=== PATIENT | male | born 1935 | race African-American/Black ===

== ENCOUNTER 2017-07-18 06:01 | Emergency (ER) | payer MEDICARE ==
[~2017-07-18] VITALS: Ht 177.8 cm; Wt 79.0 kg
[~2017-07-18 06:01] MED LIST: GLUC10TA3 PO; LANTUS2P SQ; LISI-360 PO; ZOCO40TA PO; [UNRECOGNIZED DRUG - CODE]
[2017-07-18 06:07] VITALS: BP 135/66; PULSE 62; RESP 18
--- NOTE | 2017-07-18 06:25 | PD ---
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 And he apparently took 30 units of an unknown type of insulin. It was in a syringe unmarked . Apparently he bottomed out his sugar. Paramedics found him confused and combative. His sugar was 37 at the scene and was given an amp with 25 g of dextrose. His mentation improved he arise very pleasantly confused to the ER normal vitals apparently he doesn't even remember that he is living in [place]. 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 He is unaware of what kind of cancer eyes a prostate he says yes prostate. At the time in the ER he has no complaints no cough no fever no source of infection it could be eating of his glucose. And he says he eats fine there's been no decrease in by mouth intake. I ask him who helps with his insulin regimen he says his lady friend and he asked if she is coming. He seems pleasantly demented. PFSH Past Medical History Heart Rhythm Problems: No Cancer: Yes (PROSTATE) Cardiac Catheterization: No Cardiovascular Problems: No High Cholesterol: Yes Congestive Heart Failure: No Diabetes: Yes Patient Takes Glucophage: No Inguinal Hernia: Yes Pneumonia: Yes Radiation Therapy: Yes Shingles: Yes Tetanus Vaccination: > 5 Years Past Surgical History Appendectomy: Yes Cholecystectomy: Yes Coronary Artery Bypass Graft: No Eye Surgery: Yes (BILAT CATARACTS) Prostatectomy: Yes Family History Family Myocardial Infarction: Yes Social History Alcohol Use: No Tobacco Use: No Substance Use: No Allergies-Medications (Allergen,Severity, Reaction): Coded Allergies: No Known Allergies (Unverified , 02/14/15) Reported Meds & Prescriptions Reported Meds & Active Scripts Active Comfort Assist Insulin Sy 30G X 12/23" 0.3 ml (Insulin Syringe/Needle U-100) 1 Mis Mis Syringe Lantus (Insulin Glargine) 100 Units/Ml Inj 10 Unit SQ HS 30 Days Lisinopril 10 mg (Lisinopril) 10 Mg Tab 1 Tab PO DAILY 30 Days Reported Glipizide 10 Mg Tab 20 Mg PO BID Zocor 40 mg (Simvastatin) 40 Mg Tab 1 Tab PO HS Review of Systems Except as stated in HPI: all other systems reviewed are Neg Neurologic: Positive: Change in Mentation, Slurred Speech Physical Exam Narrative GENERAL: alert but demented reports not realizing he is in [place] no memory of ever leaving [facility] SKIN: Warm and dry. HEAD: Atraumatic. Normocephalic. un combed disheveled hair EYES: Pupils equal and round. No scleral icterus. No injection or drainage. ENT: No nasal bleeding or discharge. Mucous membranes pink and moist. NECK: Trachea midline. No JVD. CARDIOVASCULAR: Regular rate and rhythm. RESPIRATORY: No accessory muscle use. Clear to auscultation. Breath sounds equal bilaterally. GASTROINTESTINAL: Abdomen soft, non-tender, nondistended. Hepatic and splenic margins not palpable. MUSCULOSKELETAL: Extremities without clubbing, cyanosis, or edema. No obvious deformities. NEUROLOGICAL: Motor grossly within normal limits. Five out of 5 muscle strength in the arms and legs. Normal speech. PSYCHIATRIC: Appropriate mood and affect; time disoriented Data Data Last Documented VS Vital Signs Date Time Temp Pulse Resp B/P (MAP) Pulse Ox O2 Delivery O2 Flow Rate FiO2 07/18/17 09:00 98.1 07/18/17 06:11 97 Room Air 07/18/17 06:07 62 18 135/66 (89) Orders Orders Complete Blood Count With Diff (07/18/17 06:16) Blood Glucose (07/18/17 06:16) Comprehensive Metabolic Panel (07/18/17 06:16) Iv Access Insert/Monitor (07/18/17 06:16) Dext 5%-Nacl 0.45% 1000 Ml Inj (D5w-1/2 (07/18/17 06:30) Blood Glucose (07/18/17 08:55) Ed Discharge Order (07/18/17 09:11) Labs Laboratory Tests Test 07/18/17 06:15 White Blood Count 8.9 TH/MM3 Red Blood Count 3.99 MIL/MM3 Hemoglobin 12.1 GM/DL Hematocrit 36.2 % Mean Corpuscular Volume 90.7 FL Mean Corpuscular Hemoglobin 30.4 PG Mean Corpuscular Hemoglobin Concent 33.5 % Red Cell Distribution Width 13.5 % Platelet Count 201 TH/MM3 Mean Platelet Volume 9.8 FL Neutrophils (%) (Auto) 71.2 % Lymphocytes (%) (Auto) 17.5 % Monocytes (%) (Auto) 5.7 % Eosinophils (%) (Auto) 5.1 % Basophils (%) (Auto) 0.5 % Neutrophils # (Auto) 6.3 TH/MM3 Lymphocytes # (Auto) 1.6 TH/MM3 Monocytes # (Auto) 0.5 TH/MM3 Eosinophils # (Auto) 0.5 TH/MM3 Basophils # (Auto) 0.0 TH/MM3 CBC Comment DIFF FINAL Differential Comment Blood Urea Nitrogen 23 MG/DL Creatinine 1.98 MG/DL Random Glucose 162 MG/DL Total Protein 7.4 GM/DL Albumin 3.2 GM/DL Calcium Level 8.8 MG/DL Alkaline Phosphatase 88 U/L Aspartate Amino Transf (AST/SGOT) 13 U/L Alanine Aminotransferase (ALT/SGPT) 13 U/L Total Bilirubin 0.2 MG/DL Sodium Level 141 MEQ/L Potassium Level 4.2 MEQ/L Chloride Level 107 MEQ/L Carbon Dioxide Level 26.1 MEQ/L Anion Gap 8 MEQ/L Estimat Glomerular Filtration Rate 39 ML/MIN MDM Medical Decision Making Medical Screen Exam Complete: Yes Emergency Medical Condition: Yes Differential Diagnosis AMS from delirium vs dementia vs hypoglycemia acute on chronic dementia other Narrative Course I ordered labs CXR and signed out to Dr daily for follow up labs and prognosis Killian Hendrix MD Jul 18, 2017 06:25
[2017-07-18] MEDS ORDERED: DEXT 5%-NACL 0.45% 1000 ML INJ 1,000 ML IV SCH (06:30)
[2017-07-18 06:42] LABS: AUTOMATED NEUTROPHIL # 6.3 TH/MM3 (1.8-7.7); BASOPHIL % 0.5 % (0.0-2.0); EOSINOPHIL # 0.5 TH/MM3 (0-0.4); EOSINOPHIL % 5.1 % (0.0-4.0); HEMATOCRIT 36.2 % (39.0-51.0); HEMO FLAGS DIFF FINAL; LYMPH % 17.5 % (9.0-44.0); LYMPHOCYTE # 1.6 TH/MM3 (1.0-4.8); MEAN CELL VOLUME 90.7 FL (80.0-100.0); MEAN CORPUSCULAR HEMOGLOBIN 30.4 PG (27.0-34.0); MEAN CORPUSCULAR HGB CONC 33.5 % (32.0-36.0); MONO % 5.7 % (0.0-8.0); NEUT % 71.2 % (16.0-70.0); PLATELET COUNT 201 TH/MM3 (150-450); RED BLOOD COUNT 3.99 MIL/MM3 (4.50-5.90); RED CELL DISTRIBUTION WIDTH 13.5 % (11.6-17.2); WHITE BLOOD COUNT 8.9 TH/MM3 (4.0-11.0)
[2017-07-18 06:55] LABS: ALT (GPT) 13 U/L (12-78); ANION GAP 8 MEQ/L (5-15); AST (GOT) 13 U/L (15-37); BICARBONATE 26.1 MEQ/L (21.0-32.0); BLOOD UREA NITROGEN 23 MG/DL (7-18); CHLORIDE 107 MEQ/L (98-107); GLOMERULAR FILTRATION RATE 39 ML/MIN (>89); POTASSIUM 4.2 MEQ/L (3.5-5.1); SODIUM (NA) 141 MEQ/L (136-145)
[2017-07-18 06:57] LABS: ALKALINE PHOSPHATASE 88 U/L (45-117); TOTAL BILIRUBIN ADULT 0.2 MG/DL (0.2-1.0)
--- NOTE | 2017-07-18 08:06 | PD ---
Data Data Last Documented VS Vital Signs Date Time Temp Pulse Resp B/P (MAP) Pulse Ox O2 Delivery O2 Flow Rate FiO2 07/18/17 06:11 97 Room Air 07/18/17 06:07 62 18 135/66 (89) temp is 98.1 Orders Orders Complete Blood Count With Diff (07/18/17 06:16) Blood Glucose (07/18/17 06:16) Comprehensive Metabolic Panel (07/18/17 06:16) Iv Access Insert/Monitor (07/18/17 06:16) Dext 5%-Nacl 0.45% 1000 Ml Inj (D5w-1/2 (07/18/17 06:30) Diet Diabetic (07/18/17 Breakfast) Blood Glucose (07/18/17 08:55) Ed Discharge Order (07/18/17 09:11) Labs Laboratory Tests Test 07/18/17 06:15 White Blood Count 8.9 TH/MM3 Red Blood Count 3.99 MIL/MM3 Hemoglobin 12.1 GM/DL Hematocrit 36.2 % Mean Corpuscular Volume 90.7 FL Mean Corpuscular Hemoglobin 30.4 PG Mean Corpuscular Hemoglobin Concent 33.5 % Red Cell Distribution Width 13.5 % Platelet Count 201 TH/MM3 Mean Platelet Volume 9.8 FL Neutrophils (%) (Auto) 71.2 % Lymphocytes (%) (Auto) 17.5 % Monocytes (%) (Auto) 5.7 % Eosinophils (%) (Auto) 5.1 % Basophils (%) (Auto) 0.5 % Neutrophils # (Auto) 6.3 TH/MM3 Lymphocytes # (Auto) 1.6 TH/MM3 Monocytes # (Auto) 0.5 TH/MM3 Eosinophils # (Auto) 0.5 TH/MM3 Basophils # (Auto) 0.0 TH/MM3 CBC Comment DIFF FINAL Differential Comment Blood Urea Nitrogen 23 MG/DL Creatinine 1.98 MG/DL Random Glucose 162 MG/DL Total Protein 7.4 GM/DL Albumin 3.2 GM/DL Calcium Level 8.8 MG/DL Alkaline Phosphatase 88 U/L Aspartate Amino Transf (AST/SGOT) 13 U/L Alanine Aminotransferase (ALT/SGPT) 13 U/L Total Bilirubin 0.2 MG/DL Sodium Level 141 MEQ/L Potassium Level 4.2 MEQ/L Chloride Level 107 MEQ/L Carbon Dioxide Level 26.1 MEQ/L Anion Gap 8 MEQ/L Estimat Glomerular Filtration Rate 39 ML/MIN [facility] Medical Record Reviewed: Yes Supervised Visit with GARFIELD: No Narrative Course The patient is an 82-year-old male, insulin-dependent diabetic who this morning was found to be "delirious" as described by his significant other. EMS was activated and on scene his blood glucose was 37. His significant other reports he may have taken too much insulin yesterday night. He does take glipizide and did not take any this morning in the most recent dose was approximately 24 hours prior. The patient has no complaint of pain or medical complaint otherwise of the time my examination which was about 7:15 in the morning. He was on a D5 half-normal and fusion at 40 cc an hour. A repeat blood glucose was 109 down from 130. Patient was given a breakfast tray at approximately 8 AM. The patient tolerates food and the blood glucose remains in the normal range she can go home with a plan to resume glipizide tomorrow morning and go about his routine insulin regimen at home. CBC & BMP Diagram 07/18/17 06:15 Total Protein 7.4, Albumin 3.2 L, Calcium Level 8.8, Alkaline Phosphatase 88, Aspartate Amino Transf (AST/SGOT) 13 L, Alanine Aminotransferase (ALT/SGPT) 13, Total Bilirubin 0.2 At 912AM, after eating breakfast and approx 1 hour 15 minutes, after dc of dextrose infusion, FSG 204. Pt ready to go home. Diagnosis Primary Impression: Hypoglycemia Referrals: Primary Care Physician Additional Instruction: PLEASE DO NOT TAKE YOUR GLIPIZIDE TODAY. PLEASE TAKE YOUR GLIPIZIDE TOMORROW MORNING. PLEASE RESUME YOUR NORMAL DIET TODAY. Disposition: 01 DISCHARGE HOME Condition: Stable Carlos Yates MD Jul 18, 2017 08:06
[2017-07-18 09:00] VITALS: TEMP 98.1
== END 2017-07-18 09:46 | disposition home or self-care (01) ==
LOC: NEPE 06:01
DX: E11.649 Type 2 diabetes mellitus with hypoglycemia without coma (principal); E78.00 Pure hypercholesterolemia, unspecified; Z79.4 Long term (current) use of insulin
CPT/HCPCS: 80053; 85025; 99285